=== PATIENT | male | born 1975 | race Caucasian/White ===

== ENCOUNTER 2019-10-29 08:23 | Emergency (ER) | payer OTHER ==
[2019-10-29 08:29] VITALS: BMI 27.2
[2019-10-29] MEDS ORDERED: ACETAMINOPHEN 1000 MG/100 ML VIAL (NON FORMULARY) IVPB ONE (09:28)
[2019-10-29] MEDS ORDERED: ACETAMINOPHEN INJECTION 100 ML IVPB ONE (09:36)
--- NOTE | 2019-10-29 09:49 | PDOC ---
History of Present Illness - General Chief Complaint: Chest Pain Stated Complaint: DIZZINESS Time Seen by Provider: 10/29/19 09:09 - History of Present Illness Initial Comments: 10/29/19 09:38 HPI: 44 y/o M no significant medical hx presenting to the ED with 8 days of lightheadedness and alternating episodes of occipital pressure. He reports these episodes last a few minutes and are triggered by the following: positional elizalde ges, increased abdominal pressure (laugh/cough). During these episodes, he experiences mild frontal headaches and occasional blurry vision and flashing lights. 2 days ago, he began to experience episodes of alternating episodes of chest pain 3/10 in severity. These episodes are non- radiating and not accompanied by sob. with no relieving or exacerbating factors. He denies fevers, chills, nausea, vomiting, head trauma, abdominal pain, weakness. numbness. PMHx: as noted above ROS: as noted SHx: denies drug use. Allergies: NKDA ROS: GENERAL/CONSTITUTIONAL: No fever or chills. No weakness. HEAD, EYES, EARS, NOSE AND THROAT: No change in vision. No ear pain or discharge. No sore throat. CARDIOVASCULAR: No chest pain or shortness of breath RESPIRATORY: No cough, wheezing, or hemoptysis. GASTROINTESTINAL: No nausea, vomiting, diarrhea or constipation. GENITOURINARY: No dysuria, frequency, or change in urination. MUSCULOSKELETAL: No joint or muscle swelling or pain. No neck or back pain. SKIN: No rash NEUROLOGIC: No headache, vertigo, loss of consciousness, or change in strength/sensation. ENDOCRINE: No increased thirst. No abnormal weight change HEMATOLOGIC/LYMPHATIC: No anemia, easy bleeding, or history of blood clots. ALLERGIC/IMMUNOLOGIC: No hives or skin allergy. PE: GENERAL: Awake, alert, and fully oriented, in no acute distress HEAD: No signs of trauma, normocephalic, atraumatic EYES: PERRLA, EOMI, sclera anicteric, conjunctiva clear ENT: Auricles normal inspection, hearing grossly normal, nares patent, oropharynx clear without exudates. Moist mucosa NECK: Normal ROM, supple, no lymphadenopathy, JVD, or masses LUNGS: No distress, speaks full sentences, clear to auscultation bilaterally HEART: Regular rate and rhythm, normal S1 and S2, no murmurs, rubs or gallops, peripheral pulses normal and equal bilaterally. ABDOMEN: Soft, nontender, normoactive bowel sounds. No guarding, no rebound. No masses EXTREMITIES : Normal inspection, Normal range of motion, no edema. No clubbing or cyanosis NEUROLOGICAL: Cranial nerves II through XII grossly intact. Normal speech, normal gait, no focal sensorimotor deficits SKIN: Warm, Dry, normal turgor, no rashes or lesions noted Past History - Medical History Allergies/Adverse Reactions: Allergies Allergy/AdvReac Type Severity Reaction Status Date / Time No Known Allergies Allergy Verified 10/29/19 08:26 Home Medications: Ambulatory Orders NK [No Known Home Medication] 10/29/19 COPD: No Other medical history: DENIES - Immunization History Immunization Up to Date: No - Psycho-Social/Smoking History Smoking History: Current every day smoker Information on smoking cessation initiated: No - Substance Abuse Hx (Audit-C & DAST Scrn) How often the patient has a drink containing alcohol: Monthly or less Number of drinks the patient has on a typical day: 1 or 2 How often the patient has six or more drinks on one occasion: Never Score: In Men: 4 or > Positive; In Women: 3 or > Positive: 1 Screen Result (Pos requires Nsg. Audit-10AR): Negative In the last yr the pt used illegal drug/Rx for NonMed reason: No Score: Yes response is considered Positive: 0 Screen Result (Positive result requires Nsg. DAST-10): Negative *Physical Exam - Vital Signs Last Vital Signs Temp Pulse Resp BP Pulse Ox 98.2 F 72 20 132/81 100 10/29/19 08:26 10/29/19 08:26 10/29/19 08:26 10/29/19 08:26 10/29/19 08:26 ED Treatment Course - LABORATORY CBC & Chemistry Diagram: 10/29/19 09:30 10/29/19 09:30 - RADIOLOGY Radiology Studies Ordered: Category Date Time Status HEAD CT WITHOUT CONTRAST [CT] Stat CT Scan 10/29/19 09:18 Ordered CHEST X-RAY PORTABLE* [RAD] Stat Radiology 10/29/19 09:18 Ordered Medical Decision Making - Medical Decision Making 10/29/19 11:38 44 y/o M no significant medical hx presenting to the ED with 8 days of lightheadedness and alternating episodes of occipital pressure.Dr crawford; intracrnial mass. subarachnoid hemorrhage, vestibular neuritis, acs, EKG: nsr, normal ekg. no acute chest pathology, negative troponin head ct read pending. 10/29/19 15:06 CT scan of the brain without intravenous contrast. Impression: No evidence of a focal intracranial lesion or hemorrhage is seen. 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 The bones and soft tissues are intact. Impression: No acute chest pathology. 10/29/19 15:[address] Parrish, will come see the patient in the ED 10/29/19 16:01 pt well appearing in no distress at this time. seen by Dr. Parrish. will follow up with him on an outpatient basis. Discharge - Discharge Information Problems reviewed: Yes Clinical Impression/Diagnosis: Lightheadedness Chest pain Qualifiers: Chest pain type: other chest pain Qualified Code(s): R07.89 - Other chest pain Condition: Stable - Admission No - Follow up/Referral Referrals: Deniz Parrish MD [Staff Physician] - - Patient Discharge Instructions Patient Printed Discharge Instructions: DI for Chest Pain, DI for Dizziness- Nonvertigo Additional Instructions: Follow up with neurologist Dr. Parrish for evaluation and additional imaging Your care is not complete until you do so. RETURN TO THE ER if chest pain is persistent you develop fevers, chills. you continue to experience lightheadedness/ dizziness and headaches not relieved with over the counter medication. - Post Discharge Activity
--- NOTE | 2019-10-29 10:15 | EKG ---
Test Reason : Blood Pressure : / mmHG Vent. Rate : 067 BPM Atrial Rate : 067 BPM P-R Int : 184 ms QRS Dur : 090 ms QT Int : 378 ms P-R-T Axes : 043 -10 022 degrees QTc Int : 399 ms NORMAL SINUS RHYTHM NORMAL ECG NO PREVIOUS ECGS AVAILABLE Confirmed by MD Bob, Alex ([id number]) on 10/29/2019 10:15:27 AM Referred By: Confirmed By:Alex Rojas MD
[2019-10-29 10:17] LABS: BASO % 0.6 % (0-2.0); EOS % 2.9 % (0-4.5); HEMATOCRIT 48.4 % (35.4-49); HEMOGLOBIN 16.4 GM/dL (11.7-16.9); LYMPH % 17.1 % (8-40); MCH 30.5 pg (25.7-33.7); MCHC 33.8 g/dl (32.0-35.9); MEAN CELL VOLUME 90.2 fl (80-96); MEAN PLT VOLUME 8.4 fl (7.5-11.1); MONO % 5.6 % (3.8-10.2); NEUT % 73.8 % (42.8-82.8); PLATELET COUNT 322 K/MM3 (134-434); RBC 5.37 M/mm3 (4.00-5.60); RDW 13.9 % (11.9-15.9); WHITE BLOOD COUNT 15.7 K/mm3 (4.0-10.0)
--- NOTE | 2019-10-29 10:39 | PDOC ---
Documentation entered by Romeo Mora SCRIBE, acting as scribe for Nessa Rowan MD. Nessa Rowan MD: This documentation has been prepared by the scribe, Romeo Mora SCRIBE, under my direction and personally reviewed by me in its entirety. I confirm that the documentation accurately reflects all work, treatment, procedures, and medical decision making performed by me. Attending Attestation - Resident Resident Name: Kalpana Chaudhry - ED Attending Attestation I have performed the following: I have examined & evaluated the patient, The case was reviewed & discussed with the resident, I agree w/resident's findings & plan, Exceptions are as noted - HPI HPI: 10/29/19 10:03 The patient is a 44 year old male with no significant past medical history who presents to the emergency department for evaluation of lightheadedness and occipital pressure that began eight days ago, associated with R posterior orbital pressure as well. The patient reports non radiating pain without allevia ting or exacerbating factors that are triggered by positional changes, laughing, and coughing. He endorses these symptoms are sometimes associated with blurry vision. The patient notes 3/10 intermittent chest pain that began 2 days ago. Currently pain free. Allergies: NKDA Social Hx: None reported - Physicial Exam PE: 10/29/19 09:37 GENERAL: Awake, alert, and fully oriented, in no acute distress HEAD: No signs of trauma EYES: PERRLA, EOMI, sclera anicteric, conjunctiva clear ENT: Auricles normal inspection, hearing grossly normal, nares patent, oroph arynx clear without exudates. Moist mucosa NECK: Normal ROM, supple, no lymphadenopathy, JVD, or masses LUNGS: Breath sounds equal, clear to auscultation bilaterally. No wheezes, and no crackles HEART: Regular rate and rhythm, normal S1 and S2, no murmurs, rubs or gallops ABDOMEN: Soft, nontender, normoactive bowel sounds. No guarding, no rebound. No masses EXTREMITIES: Normal range of motion, no edema. No clubbing or cyanosis. No cords, erythema, or tenderness NEUROLOGICAL: Cranial nerves II through XII grossly intact. Normal speech, normal gait SKIN: Warm, Dry, normal turgor, no rashes or lesions noted. - Medical Decision Making 10/29/19 10:39 Symptoms are concerning for neurologic process- poss ICH vs mass? Will obtain CTH. Will discuss with neuro, as well. Discharge - Discharge Information Problems reviewed: Yes Clinical Impression/Diagnosis: Lightheadedness Chest pain Qualifiers: Chest pain type: other chest pain Qualified Code(s): R07.89 - Other chest pain Condition: Stable Disposition: HOME - Follow up/Referral Referrals: Deniz Parrish MD [Staff Physician] - - Patient Discharge Instructions Patient Printed Discharge Instructions: DI for Chest Pain, DI for Dizziness- Nonvertigo Additional Instructions: Follow up with neurologist Dr. Parrish for evaluation and additional imaging Your care is not complete until you do so. RETURN TO THE ER if chest pain is persistent you develop fevers, chills. you continue to experience lightheadedness/ dizziness and headaches not relieved with over the counter medication. - Post Discharge Activity
[2019-10-29 10:56] LABS: ALBUMIN 3.5 g/dl (3.4-5.0); ALK PHOS 88 U/L (45-117); ANION GAP 6 MMOL/L (8-16); BILIRUBIN,TOTAL 0.4 mg/dL (0.2-1); BLOOD UREA NITROGEN 11.8 mg/dL (7-18); CHLORIDE 110 mmol/L (98-107); CO2 24 mmol/L (21-32); CREATININE 0.9 mg/dL (0.55-1.3); GLUCOSE,RANDOM 86 mg/dL (74-106); POTASSIUM 4.3 mmol/L (3.5-5.1); SGOT/AST 22 U/L (15-37); SGPT/ALT 26 U/L (13-61); SODIUM 139 mmol/L (136-145)
[2019-10-29 15:47] VITALS: BP 107/76; PULSE 65; TEMP 97.9
--- NOTE | 2019-10-29 16:27 | CON.NEURO ---
Consult - Smoking History Smoking history: Current every day smoker Home Medications - Allergies Allergies/Adverse Reactions: Allergies Allergy/AdvReac Type Severity Reaction Status Date / Time No Known Allergies Allergy Verified 10/29/19 08:26 - Home Medications Home Medications: Ambulatory Orders NK [No Known Home Medication] 10/29/19 Physical Exam-Neuro Vital Signs: Vital Signs Temperature 97.9 F 10/29/19 15:44 Pulse Rate 65 10/29/19 15:44 Respiratory Rate 18 10/29/19 15:44 Blood Pressure 107/76 10/29/19 15:44 O2 Sat by Pulse Oximetry (%) 98 10/29/19 15:44 Labs: CBC, BMP 10/29/19 09:30 10/29/19 09:30 Assessment/Plan cc Feeing of dizziness and pressure behind the head HPI 44 year old male , no prior history. 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 He has been having headhace and dizziness for two -three days before arriving hospital. He feels like mild pressure like sensation, and feel lightheadedness when he sneeze and cough. He denies any motor weakness, sensory loss, tingling and numbess, loc. Patient has ct head , which showed there is mild peeking of cerebellar tonsil into foramen magnum.Patient denies knowing these findings before. He do not have any migraine or tension headache before. He is going through some stress. PMHx: as noted above ROS: as noted SHx: denies drug use. Allergies: NKDA ROS,FH,SH reviewed in chart NEUROLOGICAL EXAMINATION Alert oriented x 3, speech is normal vss, afebrile eomi, pupils reactive no face asymmetry there is mild neck soreness, motor 5/5 all ext sensation is noraml ct head unremarkable Assessment/Plan Mild dizziness on exertion and couging with cerebellar peeking into foreamen magnum. Patient may have tension headhace vs cerebellar ectopia. PLAN- Patient has noraml exam, and no evidence of migriane, meningitis or sah, he can be discharged home and if symptoms persists, mri of brain with contrast ( pateint wishes to follow up outpatient) - advice to come to ed if symptoms get worse - advice to take zanaflex 5 mg qhs - tylenol pm prn - follow up outpatient. Thanking you fawn Parrish MD
== END 2019-10-29 16:23 | disposition home or self-care (01) ==
LOC: JER 08:23
PROC: 3E0333Z Introduction of Anti-inflammatory into Peripheral Vein, Percutaneous Approach (ICD-10-PCS; principal; 2019-10-29)
DX: R42 Dizziness and giddiness (principal); R07.89 Other chest pain
CPT/HCPCS: 36415; 70450-TC; 71046-TC-FY; 80053; 84484; 85025; 93005; 93010; 99285-25; J0131

== ENCOUNTER 2019-10-31 08:59 | Emergency (ER) | payer OTHER ==
[2019-10-31 09:09] VITALS: BP 117/72; PULSE 74; TEMP 98.5; BMI 27.2
[2019-10-31] MEDS ORDERED: SUMAtriptan SUCCINATE 50 MG TABLET PO SCH (09:45)
[2019-10-31] MEDS ORDERED: SUMAtriptan SUCCINATE 50 MG TABLET ONE (09:47)
--- NOTE | 2019-10-31 10:05 | PDOC ---
History of Present Illness - General Chief Complaint: Headache Stated Complaint: HEADACHE (EXTREME PAIN) Time Seen by Provider: 10/31/19 09:27 History Source: Patient Exam Limitations: Clinical Condition - History of Present Illness Initial Comments: 10/31/19 10:02 Patient with no significant past medical history seen 2 days ago for migraine headaches and chest pain present with complaint again today with headache which he described as tension up the back of the head that described as viselike and radiating to the front of forehead. Patient report also having pain to the left side the back of the neck upon wake today. Denies nausea, vomiting, blurry vision, dizziness, spinning sensation, shortness of breath. Patient reported has not felt any chest pain since last ED visit. Patient reported he was supposed to follow-up with neurology tomorrow but when he called the neurology office, the office told him he could not be seen 1 to 2 weeks even though neurologist instructed him to follow-up tomorrow. Patient reported taking [id number] powder medication for the headache without improvement. Denies any head trauma. Head CT done from visit 2 days ago shows mild right tonsillar ectopia with no effect on the brain. Timing/Duration: reports: 1 week, episodic Severity: Yes: moderate Associated Symptoms: denies: fever/chills, loss of consciousness, nausea/vomiting, paresthesia, ringing in ears, seizures, slurred speech, tingling in legs/feet, vision changes, weakness Past History - Medical History Allergies/Adverse Reactions: Allergies Allergy/AdvReac Type Severity Reaction Status Date / Time No Known Allergies Allergy Verified 10/31/19 09:09 Home Medications: Ambulatory Orders Butalb/Acetaminophen/Caffeine [Fioricet 50-300-40 mg Capsule] 1 each PO Q6H PRN #20 capsule 10/31/19 Methylprednisolone [Medrol Dose Mauro] 4 mg PO ASDIR #21 tablet 10/31/19 COPD: No - Immunization History Immunization Up to Date: No - Psycho-Social/Smoking History Smoking History: Current every day smoker Have you smoked in the past 12 months: Yes Number of Cigarettes Smoked Daily: 10 Information on smoking cessation initiated: No - Substance Abuse Hx (Audit-C & DAST Scrn) How often the patient has a drink containing alcohol: 2-4 times / month Number of drinks the patient has on a typical day: 3 or 4 How often the patient has six or more drinks on one occasion: Never Score: In Men: 4 or > Positive; In Women: 3 or > Positive: 3 Screen Result (Pos requires Nsg. Audit-10AR): Negative In the last yr the pt used illegal drug/Rx for NonMed reason: No Score: Yes response is considered Positive: 0 Screen Result (Positive result requires Nsg. DAST-10): Negative Neuro Specific PMHX - Complaint Specific PMHX Glaucoma: No Herniated Disk: No Laminectomy: No Migraine: Yes Multiple Sclerosis: No Neuropathy: No TIA: No Review of Systems - Review of Systems Able to Perform ROS?: Yes Is the patient limited [place] proficient: No Constitutional: No: Chills, Fever, Malaise HEENTM: No: Symptoms Reported, See HPI, Eye Pain, Blurred Vision, Tearing, Recent change in vision, Double Vision, Cataracts, Ear Pain, Ocular Prothesis, Ear Discharge, Nose Pain, Nose Congestion, Tinnitus, Nose Bleeding, Hearing Loss, Throat Pain, Throat Swelling, Mouth Pain, Dental Problems, Difficulty Swallowing, Mouth Swelling, Other Respiratory: No: Symptoms reported, See HPI, Cough, Orthopnea, Shortness of Breath, SOB with Exertion, SOB at Rest, Stridor, Wheezing, Productive cough, Hemoptysis, Other Cardiac (ROS): No: Symptoms Reported, See HPI, Chest Pain, Edema, Irregular Heart Rate, Lightheadedness, Palpitations, Syncope, Chest Tightness, Other ABD/GI: No: Symptoms Reported, Nausea, Vomiting Musculoskeletal: Yes: Symptoms Reported, See HPI, Muscle Pain (left side of neck pain), Neck Pain (left side of neck pain) Integumentary: No: Symptoms Reported Neurological: Yes: Symptoms reported, See HPI, Headache. No: Numbness, Paresthesia, Pre-Existing Deficit, Seizure, Tingling, Weakness, Unsteady Gait, Dizziness All Other Systems: Reviewed and Negative *Physical Exam - Vital Signs Last Vital Signs Temp Pulse Resp BP Pulse Ox 98.5 F 74 17 117/72 99 10/31/19 09:07 10/31/19 09:07 10/31/19 09:07 10/31/19 09:07 10/31/19 09:07 - Physical Exam 10/31/19 10:10 GENERAL: Well developed, well nourished. Awake and alert. No acute distress. HEENT: Normocephalic, atraumatic. PERRLA, EOMI. No conjunctival pallor. Sclera are non- icteric. Moist mucous membranes. Oropharynx is clear. NECK: Supple. Full ROM. No JVD. Carotid pulses 2+ and symmetric, without bruits. No thyromegaly. No lymphadenopathy. CARDIOVASCULAR: Regular rate and rhythm. No murmurs, rubs, or gallops. Distal pulses are 2+ and symmetric. PULMONARY: No evidence of respiratory distress. Lungs clear to auscultation bilaterally. No wheezing, rales or rhonchi. ABDOMINAL: Soft. Non-tender. Non-distended. No rebound or guarding. No organomegaly. Normoactive bowel sounds. MUSCULOSKELETAL Normal range of motion at all joints. No bony deformities or tenderness. EXTREMITIES: No cyanosis. No clubbing. No edema. No calf tenderness. SKIN: Warm and dry. Normal capillary refill. No rashes. No jaundice. NEUROLOGICAL: Alert, awake, appropriate. Cranial nerves 2-12 intact. No deficits to light touch in face, upper extremities and lower extremities. No motor deficits in the in face, upper extremities and lower extremities. Normal speech. Gait is normal without ataxia. PSYCHIATRIC: Cooperative. Good eye contact. Appropriate mood and affect. General Appearance: Yes: Nourished, Appropriately Dressed. No: Apparent Distress Medical Decision Making - Medical Decision Making 10/31/19 10:06 Patient with no significant past medical history seen 2 days ago for migraine headaches and chest pain present with complaint again today with headache which he described as tension up the back of the head that described as viselike and radiating to the front of forehead. Patient report also having pain to the left side the back of the neck upon wake today. Denies nausea, vomiting, blurry vision, dizziness, spinning sensation, shortness of breath. Patient reported has not felt any chest pain since last ED visit. Patient reported he was supposed to follow-up with neurology tomorrow but when he called the neurology office, the office told him he could not be seen 1 to 2 weeks even though neurologist instructed him to follow-up tomorrow. Patient reported taking [id number] powder medication for the headache without improvement. Denies any head trauma. Head CT done from visit 2 days ago shows mild right tonsillar ectopia with no effect on the brain. Clinical exam unremarkable with normal neuro exam. Patient walking with normal gait and normal balance. Negative Kernig and Brudzinski sign. Patient afebrile. No tenderness to cervical spine. Full range of motion of cervical spine. Patient symptoms likely tension headache and neck pain was likely from sleeping wrong on his neck causing neck strain. Imitrex 50 mg p.o. ordered for migraine. Reassess after 20 minutes 10/31/19 11:21 Patient reports some improvement in headache with Imitrex. Patient up and sitting and eating potato chips in no acute distress. Able to secure appointment with neurologist tomorrow morning at 10 AM for patient. Patient stable for discharge on Fioricet PRN for headache and with neurology appointment tomorrow. Discharge - Discharge Information Problems reviewed: Yes Clinical Impression/Diagnosis: Tension-type headache, not intractable Qualifiers: Headache chronicity pattern: episodic headache Qualified Code(s): G44.219 - Episodic tension-type headache, not intractable Neck muscle strain Qualifiers: Encounter type: initial encounter Qualified Code(s): S16.1XXA - Strain of muscle, fascia and tendon at neck level, initial encounter Condition: Improved Disposition: HOME - Admission No - Additional Discharge Information Prescriptions: Butalb/Acetaminophen/Caffeine [Fioricet 50-300-40 mg Capsule] 1 each PO Q6H PRN #20 capsule PRN Reason: headache Methylprednisolone [Medrol Dose Mauro] 4 mg PO ASDIR #21 tablet - Follow up/Referral Referrals: Deniz Parrish MD [Staff Physician] - 11/01/19 10:00 am - Patient Discharge Instructions Patient Printed Discharge Instructions: DI for Sinus Headache, DI for Hormonal and Tension Headaches Additional Instructions: Take prescribed medications prescribed for headache and neck pain. Follow-up with urologist tomorrow morning at 10 AM as scheduled - Post Discharge Activity
== END 2019-10-31 11:21 | disposition home or self-care (01) ==
LOC: JER 08:59
DX: G44.219 Episodic tension-type headache, not intractable (principal); S16.1XXA Strain of muscle, fascia and tendon at neck level, initial encounter
CPT/HCPCS: 99283-25